=== PATIENT | female | born 1950 | race Caucasian/White ===

== ENCOUNTER 2021-05-09 23:34 | Emergency (ER) | payer MEDICARE, SELFPAY ==
[2021-05-09 23:37] VITALS: BP 176/101; PULSE 82; RESP 18; TEMP 36.8; O2SAT 97; BMI 37.2
--- NOTE | 2021-05-09 23:48 | CTR_ITS ---
PROCEDURE INFORMATION: Exam: CT Abdomen And Pelvis With Contrast Exam date and time: 05/09/2021 11:48 PM Age: 70 years old Clinical indication: Abdominal pain; Localized; Prior surgery; Surgery type: Hysterectomy; Patient HX: C/O lower abd pain with transient diarrhea. TECHNIQUE: Imaging protocol: Computed tomography of the abdomen and pelvis with contrast. Radiation optimization: All CT scans at this facility use at least one of these dose optimization techniques: automated exposure control; mA and/or kV adjustment per patient size (includes targeted exams where dose is matched to clinical indication); or iterative reconstruction. Contrast material: OMNI 300; Contrast volume: 95 ml; Contrast route: INTRAVENOUS (IV); COMPARISON: CR Pelvis AP 1 or 2 views* [id number] 09/01/2018 2:32 PM RADIATION DOSE METRICS: Total DLP (mGy-cm): 1680.55 FINDINGS: Liver: Normal. No mass. Gallbladder and bile ducts: Normal. No calcified stones. No ductal dilation. Pancreas: Normal. No ductal dilation. Spleen: Normal. No splenomegaly. Adrenal glands: Normal. No mass. Kidneys and ureters: Asymmetric atrophy of left renal parenchyma. No hydronephrosis. No renal mass. No renal stones. Stomach and bowel: Unremarkable. No obstruction. No mucosal thickening. Appendix: No evidence of appendicitis. Intraperitoneal space: Unremarkable. No free air. No significant fluid collection. Vasculature: Mild degree of atherosclerosis of abdominal aorta. No aneurysm. No dissection. No acute vascular occlusion. Lymph nodes: Unremarkable. No enlarged lymph nodes. Urinary bladder: Unremarkable as visualized. Reproductive: Hysterectomy. Small right ovarian cyst measures 3.2 cm x 3 cm. Simple appearance on CT. Small left ovarian cyst measures 3.8 cm x 2.[address] appearance. Bones/joints: The lumbar spine demonstrates marked discogenic and apophyseal joint degenerative changes at multiple levels. Unremarkable alignment. No acute fractures. Soft tissues: Unremarkable. CT/CT abdomen pelvis w con* [id number] IMPRESSION: 1. Negative for acute abdominopelvic pathology. 2. Small bilateral ovarian cysts. Given the patient age, non emergent outpatient transabdominal and transvaginal pelvic ultrasound follow-up is recommended for further characterization.
--- NOTE | 2021-05-09 23:52 | W.ED.ABDPA2 ---
HPI - Abdominal Pain General: Chief Complaint: Abdominal Pain Stated Complaint: ADB PAIN Time Seen by Provider: 05/09/21 23:37 Source: patient and EMS Mode of arrival: EMS Limitations: no limitations History of Present Illness: 70-year-old female who states that she been having abdominal pain over the last 2 days in her lower abdomen states that history of UTIs is similar to the pain is worse states that earlier tonight it was a 9 out of 10 received fentanyl in route pain is now 2 out of 10 has had some dysuria states she has diarrhea but has chronic diarrhea states that some of her stools have been dark in nature denies any vomiting denies any fever denies any chest pain. Associated Symptoms: Reports diarrhea; Denies chills, dysuria and fever(s) Review of Systems Const: Denies: fever(s), chills, body aches or change in appetite Eyes: Denies: blurry vision or eye discomfort ENMT: Denies: throat pain or dental pain Card: Denies: chest pain Resp: Denies: dyspnea GI: Reports: abdominal pain and diarrhea : Denies: dysuria Musc: Denies: neck pain or back pain Skin/Breast: Denies: rash Neuro: Denies: headache(s) Psych: Denies: depression Liam/Lymph: Denies: easy bruising All/Imm: Denies: urticaria PFSH ED PFSH: Surgical History H/O: hysterectomy Social History (Updated 05/09/21 @ 23:55 by Dorota Calderon MD) Substance/Drug Use: never Physical Exam Const: COMMON NORMALS: no acute distress, patient oriented x3 and healthy appearing HENMT: COMMON NORMALS: normocephalic and atraumatic HEAD & SCALP: normocephalic and atraumatic Eye: COMMON NORMALS: Equal, round and reactive pupils present and EOMs intact bilaterally PUPIL: Yes Equal, round and reactive pupils present Neck/C-Spine: COMMON NORMALS: full ROM and supple Chest: COMMONS NORMALS: normal inspection of the chest and normal palpation of entire chest wall Resp: COMMON NORMALS: normal respiratory effort, No retractions, No use of accessory muscles and clear to auscultation bilaterally AUSCULTATION: clear to auscultation bilaterally Cardio: COMMON NORMALS: regular rate, regular rhythm and No murmurs present (Cardio) RATE: regular rate RHYTHM: regular rhythm GI: COMMON NORMALS: Normal to inspection, nondistended, normoactive bowel sounds present, Soft to palpation, non-tender and no masses PALPATION: Yes Soft to palpation OTHER: Rectal exam shows brown stool no blood Extremity: COMMON NORMALS: normal to inspection and full ROM Neuro: COMMON NORMALS: patient oriented x3, moves all extremities and no focal motor deficits Psych: COMMON NORMALS: mental status grossly normal, Normal thought process present and cooperative THOUGHT PROCESS: Normal thought process present Skin: COMMON NORMALS: no rashes or lesions noted and no wounds GENERAL SKIN EXAM: no rashes or lesions noted Course Vital Signs: Vital signs: Vital Signs Temperature 98.3 F 05/10/21 02:22 Pulse Rate 79 05/10/21 02:22 Respiratory Rate 16 05/10/21 02:22 Blood Pressure 155/81 05/10/21 02:22 Pulse Oximetry 97 05/10/21 02:22 MDM - Abdominal Pain Medical Decision Making Patient presents here with abdominal pain patient's blood work urinalysis CT are all normal pain is much improved at discharge abdominal exam discharge is benign she is stable for discharge she is to follow-up with PCP and return if worsening. Lab Data : 05/10/21 00:37 05/10/21 00:37 Labs/Radiology: Radiology Impressions Abdomen/Pelvis CT 05/09/21 23:48 IMPRESSION: 1. Negative for acute abdominopelvic pathology. 2. Small bilateral ovarian cysts. Given the patient age, non emergent outpatient transabdominal and transvaginal pelvic ultrasound follow-up is recommended for further characterization. Laboratory Results WBC 8.0 10^3/uL (4.0-10.0) 05/10/21 00:37 RBC 4.35 10^6/uL (4.1-5.3) 05/10/21 00:37 Hgb 11.3 g/dL (11.5-15.3) L 05/10/21 00:37 Hct 37.2 % (37.0-47.0) 05/10/21 00:37 MCV 85.5 fl (81-99) 05/10/21 00:37 MCH 26.0 pg (28.0-34.0) L 05/10/21 00:37 MCHC 30.4 g/dL (30.0-36.0) 05/10/21 00:37 RDW 14.6 % (12.1-15.1) 05/10/21 00:37 Plt Count 407 10^3/cmm (130-400) H 05/10/21 00:37 MPV 9.0 fL (7.4-10.4) 05/10/21 00:37 Neut % (Auto) 70.4 % 05/10/21 00:37 Lymph % (Auto) 17.0 % 05/10/21 00:37 [place] % (Auto) 8.1 % 05/10/21 00:37 Eos % (Auto) 2.6 % 05/10/21 00:37 Baso % (Auto) 1.4 % 05/10/21 00:37 Neut # (Auto) 5.60 10^3/uL (1.8-7.7) 05/10/21 00:37 Lymph # (Auto) 1.4 10^3/uL (0.8-4.8) 05/10/21 00:37 [place] # (Auto) 0.6 10^3/uL (0.2-0.9) 05/10/21 00:37 Eos # (Auto) 0.2 10^3/uL (0.0-0.8) 05/10/21 00:37 Baso # (Auto) 0.1 10^3/uL (0.0-0.1) 05/10/21 00:37 Nucleated RBC % (auto) 0 % 05/10/21 00:37 Nucleated RBCs # 0.0 /100WBC 05/10/21 00:37 Sodium 137 mmol/L (136-145) 05/10/21 00:37 Potassium 4.1 mmol/L (3.5-5.1) 05/10/21 00:37 Chloride 104 mmol/L (98-107) 05/10/21 00:37 Carbon Dioxide 19 mmol/L (22-29) L 05/10/21 00:37 Anion Gap 18.1 (5-19) 05/10/21 00:37 BUN 10 mg/dL (8-23) 05/10/21 00:37 Creatinine 0.6 mg/dL (0.5-0.9) 05/10/21 00:37 GFR Calculation 98.8 mL/min (90-130) 05/10/21 00:37 Glucose 83 mg/dL (65-115) 05/10/21 00:37 Calculated Osmolality 282 mOsm/kg (285-295) L 05/10/21 00:37 Lactate 0.7 mmol/L (0.5-2.2) 05/10/21 00:37 Calcium 9.3 mg/dL (8.5-10.5) 05/10/21 00:37 Total Bilirubin 0.2 mg/dL (0.15-1.2) 05/10/21 00:37 AST 11 U/L (0-32) 05/10/21 00:37 ALT 9 U/L (0-33) 05/10/21 00:37 Alkaline Phosphatase 85 IU/L (35-105) 05/10/21 00:37 Total Protein 6.3 g/dL (6.6-8.7) L 05/10/21 00:37 Albumin 4.2 g/dL (3.5-5.2) 05/10/21 00:37 Globulin 2.1 g/dL (1.3-4.6) 05/10/21 00:37 Lipase 91 U/L (13-60) H 05/10/21 00:37 Urine Color Straw (Yellow) 05/10/21 00:38 Urine Appearance Clear (CLEAR) 05/10/21 00:38 Urine pH 7 (5-7) 05/10/21 00:38 Ur Specific [place] 1.010 (1.005-1.030) 05/10/21 00:38 Urine Protein Neg (Negative) 05/10/21 00:38 Urine Glucose (UA) Norm (Normal) 05/10/21 00:38 Urine Ketones Negative (Negative) 05/10/21 00:38 Urine Blood Neg (Negative) 05/10/21 00:38 Urine Nitrate Negative (Negative) 05/10/21 00:38 Urine Bilirubin Neg (Negative) 05/10/21 00:38 Urine Urobilinogen Norm mg/dL (Negative) 05/10/21 00:38 Ur Leukocyte Esterase Negative (Negative) 05/10/21 00:[address] Abd/Pel: I personally reviewed and interpreted this imaging study as follows: Radiologist's impression: 1. Negative for acute abdominopelvic pathology. 2. Small bilateral ovarian cysts. Given the patient age, non emergent outpatient transabdominal and transvaginal pelvic ultrasound follow-up is recommended for further characterization Discharge Plan Discharge Patient Disposition: Home Clinical Impression: Abdominal pain Prescriptions: New hydrocodone-acetaminophen 5-325 mg tablet 1 tab PO Q6H PRN (Reason: pain) Qty: 14 0RF Discharge Orders: Discharge ED (Routine); Ordered 05/10/21 Ordered By: Dorota Calderon Discharge Diet: Advance as tolerated Discharge Activity: Resume usual activity Patient Instructions: Abdominal Pain (ED), Opioid Safety Coding Level of Care Code ED Reimbursement Coordinator for Chg Fwd Exam Comprehensive
[2021-05-10 00:44] LABS: Basophils # 0.1 10^3/uL (0.0-0.1); Basophils % 1.4 %; Eosinophils # 0.2 10^3/uL (0.0-0.8); Eosinophils % 2.6 %; Hematocrit 37.2 % (37.0-47.0); Hemoglobin 11.3 g/dL (11.5-15.3); Lymphocytes # 1.4 10^3/uL (0.8-4.8); Mean Corpuscular HGB Conc 30.4 g/dL (30.0-36.0); Mean Corpuscular Volume 85.5 fl (81-99); Monocytes # 0.6 10^3/uL (0.2-0.9); Monocytes % 8.1 %; Neutrophils % 70.4 %; Nucleated Red Blood Cells % 0 %; Platelet Count 407 10^3/cmm (130-400); Red Blood Count 4.35 10^6/uL (4.1-5.3); Red Cell Distribution Width 14.6 % (12.1-15.1)
[2021-05-10 00:50] VITALS: RESP 16
[2021-05-10] MEDS: morphine 4 mg/mL SDV 1 mL IVP (00:50)
[2021-05-10] MEDS: ondansetron 2 mg/ML SDV 2 mL 4 MG IVP (00:51)
[2021-05-10 00:57] LABS: Add Urine Microscopic? NO; Charge for UA Resulting for Rev
[2021-05-10 01:00] LABS: Bilirubin Urine Neg (Negative); Blood Urine Neg (Negative); Glucose Urine UA Norm (Normal); Ketones Urine Negative (Negative); Leukocyte Esterase Urine Negative (Negative); Nitrate Urine Negative (Negative); Protein Urine Neg (Negative); Urine Appearance Clear (CLEAR); Urine Color Straw (Yellow); Urobilinogen Urine Norm (Negative); pH Urine 7 (5-7)
[2021-05-10 01:10] LABS: Alanine Aminotransferase 9 U/L (0-33); Albumin Level 4.2 g/dL (3.5-5.2); Alkaline Phosphatase 85 IU/L (35-105); Anion Gap 18.1 (5-19); Aspartate Amino Transferase 11 U/L (0-32); Blood Urea Nitrogen 10 mg/dL (8-23); Calcium 9.3 mg/dL (8.5-10.5); Carbon Dioxide 19 mmol/L (22-29); Chloride 104 mmol/L (98-107); Globulin 2.1 g/dL (1.3-4.6); Glomerular Filtration Rate 98.8 mL/min (90-130); Glucose 83 mg/dL (65-115); Lipase 91 U/L (13-60); Osmolality Calculated 282 mOsm/kg (285-295); Potassium 4.1 mmol/L (3.5-5.1); Sodium 137 mmol/L (136-145); Total Bilirubin 0.2 mg/dL (0.15-1.2); Total Protein 6.3 g/dL (6.6-8.7)
[2021-05-10 01:11] LABS: Lactate (Lactic Acid level) 0.7 mmol/L (0.5-2.2)
[2021-05-10] MEDS: iohexol 300 mg/mL 100 mL Btl IV (01:25)
[2021-05-10 02:22] VITALS: BP 155/81; PULSE 79; RESP 16; TEMP 36.8; O2SAT 97
[2021-05-10 02:50] VITALS: BP 145/86; PULSE 78; RESP 16; TEMP 36.8; O2SAT 97
== END 2021-05-10 02:52 | disposition home or self-care (01) ==
PROVIDERS: Emergency Provider Emergency Medicine
DX: R10.9 Unspecified abdominal pain (principal)
CPT/HCPCS: 74177; 80053; 81003; 83605; 83690; 85025; 96374; 96375; 99283; 99284; J2270; J2405; Q9967

== ENCOUNTER 2021-05-10 08:04 | Emergency (ER) | payer MEDICARE, SELFPAY ==
--- NOTE | 2021-05-10 08:11 | ED_ITS ---
HPI - Abdominal Pain General: Chief Complaint: Abdominal Pain Stated Complaint: abd pain came back Time Seen by Provider: 05/10/21 08:06 Source: patient History of Present Illness: 70-year-old female returns to the emergency room. She was seen last night and discharged about 4 hours ago. She was seen for abdominal pain laboratory work was unremarkable CT of her abdomen showed an ovarian cyst they recommended a nonemergent ultrasound follow-up. Abdominal pain resolved. There is some logistical issues with her getting a ride to go home and she is remained in the waiting room since that time though she checked back in stating her abdominal pain has returned MD elicited complaint: abdominal pain Onset (ago): hour(s) Severity: mild Quality: cramping Radiation: none Migration to: no migration Exacerbating factors: nothing Relieving factors: nothing Associated Symptoms: Reports GI cramping and nausea; Denies anorexia, belching, bloating, change in bowel habits, change in stool character, chills, coffee ground emesis, constipation, diarrhea, dyspepsia, dysuria, excessive flatus, fever(s), heartburn, hematochezia, hematuria, hematemesis, fecal incontinence, loose stools, melena, poor appetite, syncope and vomiting Review of Systems Const: Denies: fever(s) or chills Card: Denies: syncope GI: Reports: nausea and GI cramping; Denies: vomiting, hematemesis, coffee ground emesis, heartburn, diarrhea, constipation, bloating, belching, excessive flatus, fecal incontinence, change in bowel habits, change in stool character, hematochezia or melena : Denies: dysuria or hematuria COUNTS INCLUDE 234 BEDS AT THE [facility] ED PFSH: Surgical History H/O: hysterectomy Physical Exam Const: GENERAL APPEARANCE: cooperative and comfortable ORIENTATION/CONSCIOUSNESS: Yes awake, Yes oriented to person, Yes oriented to place and Yes oriented to time HENMT: COMMON NORMALS: normocephalic, atraumatic and hearing grossly normal bilaterally HEAD & SCALP: normocephalic and atraumatic Neck/C-Spine: COMMON NORMALS: no JVD Resp: COMMON NORMALS: normal respiratory effort, No retractions, No use of accessory muscles and clear to auscultation bilaterally AUSCULTATION: clear to auscultation bilaterally Cardio: COMMON NORMALS: no JVD, regular rate, regular rhythm and No murmurs present (Cardio) RATE: regular rate RHYTHM: regular rhythm GI: COMMON NORMALS: Soft to palpation and No hepatosplenomegaly present AUSCULTATION: Yes normoactive bowel sounds PALPATION: Yes Soft to palpation, No Tenderness to palpation present (GI), No Guarding due to palpation present (GI) and Yes No hepatosplenomegaly present Extremity: COMMON NORMALS: normal to inspection, capillary refill normal, no clubbing, cyanosis or edema, no calf tenderness and no pedal edema Neuro: SENSORIUM/ORIENTATION: Yes oriented to person, Yes oriented to place and Yes oriented to time Skin: COMMON NORMALS: no rashes or lesions noted GENERAL SKIN EXAM: no rashes or lesions noted Course Vital Signs: Vital signs: Vital Signs Temperature 98.4 F 05/10/21 08:21 Pulse Rate 87 05/10/21 08:47 Respiratory Rate 20 H 05/10/21 08:21 Blood Pressure 184/104 05/10/21 08:47 Pulse Oximetry 94 05/10/21 08:47 MDM - Abdominal Pain Medical Decision Making Patient readmitted herself to the ER because she did not leave the waiting room she was able to get a ride home and she wanted pain medications. She did not fill her prescription for pain medication she was given earlier. Was given 2 hydrocodone and Zofran also give her prescription for Zofran and discharged home discussed with her not can repeat any labs or imaging because nothing really has changed only few hours this past. Biggest issue is getting her a ride home case management assisted with out and eventually somebody brought her money for an Uber ride back home. Medical Records I reviewed the patient's medical records. Lab Data I reviewed the patient's lab results. Discharge Plan Discharge Patient Disposition: Home Clinical Impression: Abdominal pain, H/O: hysterectomy Condition: Stable Prescriptions: New Zofran 4 mg tablet 4 mg PO Q6H PRN (Reason: nausea and vomiting) Qty: 15 0RF No Action hydrocodone-acetaminophen 5-325 mg tablet 1 tab PO Q6H PRN (Reason: pain) Qty: 14 0RF Discharge Orders: Discharge ED (Routine); Ordered 05/10/21 Ordered By: Jack Beard Discharge Diet: Clear Liquid Patient Instructions: Abdominal Pain (ED), Opioid Safety Activity Restrictions/Additional Instructions: Clear liquid diet for 24 to 48 hours. Follow-up with your primary care doctor to have a follow-up ultrasound done as an outpatient for the ovarian cyst noted on the CT. Coding Level of Care Code ED [employer] for Juan Zapien
[2021-05-10 08:21] VITALS: BP 184/104; PULSE 97; RESP 20; TEMP 36.9; O2SAT 99; BMI 35.4
[2021-05-10 08:33] VITALS: BP 184/104; PULSE 101; O2SAT 96
[2021-05-10] MEDS: HYDROcodone-acetaminophen 5-325 mg Tablet 2 TAB PO (08:34)
[2021-05-10 08:47] VITALS: BP 184/104; PULSE 87; O2SAT 94
== END 2021-05-10 08:49 | disposition home or self-care (01) ==
PROVIDERS: Emergency Provider Family Medicine
DX: R10.9 Unspecified abdominal pain (principal)
CPT/HCPCS: 99283